=== PATIENT | male | born 1995 | race Caucasian/White ===

== ENCOUNTER 2016-03-12 16:15 | Emergency (ER) | payer BC ==
[2016-03-12 16:45] VITALS: BP 111/73
--- NOTE | 2016-03-12 16:57 | UC ---
Respiratory Complaint HPI - HPI Summary HPI Summary: The patient comes in today for: 1. Rhinitis: Onset: One week. Palliative/provocative: None. Quality: Pressure Region: Nose. Severity: 3/10 Time: Constant. Associated symptoms: Social: He will be going to [place] for a week. He leaves in 5 days-- flying. Cough: Not so much today. Rhinitis: Clear. Sore throat: None. Sinus pressure: None. Fevers: None known--no temperature taken. * R - History of Current Complaint Chief Complaint: UCRespiratory Stated Complaint: SINUSES Time Seen by Provider: 03/12/16 16:38 Hx Obtained From: Patient - Allergies/Home Medications Allergies/Adverse Reactions: Allergies Allergy/AdvReac Type Severity Reaction Status Date / Time No Known Allergies Allergy Verified 03/12/16 16:25 Home Medications: Home Medications [id number] [Nyquil Severe Cold/Flu 5-6.25-10-325 mg/15Ml] 1 liq PO ONCE PRN 03/12/16 [History Confirmed 03/12/16] Throat Lozenges [Menthol Cough Drops] 5 mg MT ONCE PRN 03/12/16 [History Confirmed 03/12/16] PMH/Surg Hx/FS Hx/Imm Hx Previously Healthy: No Endocrine History Of: Denies: Diabetes, Thyroid Disease, Hyperthyroidism, Hypothyroidism, Dyslipidemia Cardiovascular History Of: Denies: Cardiac Disorders, Hypertension, Pacemaker/ICD, Myocardial Infarction , Congestive Heart Failure, Atrial Fibrillation, Deep Vein Thrombosis, Bleeding Disorders Respiratory History Of: Denies: COPD, Asthma, Bronchitis, Pneumonia, Pulmonary Embolism GI/ History Of: Reports: Gastroesophageal Reflux Denies: Ulcer, Gastrointestinal Bleed, Gall Bladder Disease, Kidney Stones, Diverticulitis, Renal Disease, Urosepsis Neurological History Of: Denies: TIA, CVA, Dementia, Seizures, Migraine Psychological History Of: Denies: Anxiety, Depression, Bipolar Disorder, Schizophrenia, Post Traumatic Stress Disorder Cancer History Of: Denies: Lung Cancer, Colorectal Cancer, Breast Cancer, Prostate Cancer, Cervical Cancer Other History Of: Negative For: HIV, Hepatitis B, Hepatitis C, Anticoagulant Therapy - Surgical History Surgical History: None - Family History Known Family History: Positive: Cardiac Disease, Hypertension, Other - healthy parents, no concerns. - Social History Occupation: Employed Full-time Alcohol Use: Occasionally Substance Use Type: None Smoking Status (MU): Never Smoked Tobacco - Immunization History Most Recent Influenza Vaccination: Not the Season Review of Systems Constitutional: Negative Skin: Negative Eyes: Negative ENT: Nasal Discharge Respiratory: Negative Cardiovascular: Negative Gastrointestinal: Negative Genitourinary: Negative All Other Systems Reviewed And Are Negative: Yes Physical Exam Triage Information Reviewed: Yes Appearance: Well-Appearing, No Pain Distress, Well-Nourished Vital Signs: Initial Vital Signs Temp 98.4 F 03/12/16 16:20 Pulse 62 03/12/16 16:20 Resp 16 03/12/16 16:20 BP 111/73 03/12/16 16:20 Pulse Ox 100 03/12/16 16:20 Vital Signs Reviewed: Yes Eyes: Positive: Conjunctiva Clear. Negative: Discharge ENT: Negative: Hearing grossly normal, Pharyngeal erythema, Nasal congestion, TM bulging, TM dull, TM red, Tonsillar swelling, Tonsillar exudate Dental: Negative: Gross Decay/Caries @, Dental Fracture @ Neck: Positive: Supple, Nontender, No Lymphadenopathy. Negative: Nuchal Rigidity Respiratory: Positive: Chest non-tender, Lungs clear, No respiratory distress, No accessory muscle use. Negative: Crackles, Wheezing Cardiovascular: Positive: RRR, No Murmur Abdomen Description: Positive: Nontender, No Organomegaly, Soft. Negative: Distended, Guarding, Peritoneal Signs Musculoskeletal: Positive: Strength Intact, ROM Intact Neurological: Positive: Alert, Muscle Tone Normal Psychological: Positive: Age Appropriate Behavior, Consolable Skin: Negative: rashes, breakdown UC Diagnostic Evaluation - Laboratory O2 Sat by Pulse Oximetry: 100 Respiratory Course/Dx - Differential Dx/Diagnosis Differential Diagnosis/HQI/PQRI: Asthma, Bronchitis, Laryngitis, Sinusitis Provider Diagnoses: Upper respiratory infection Discharge - Discharge Plan Condition: Stable Disposition: HOME Patient Education Materials: Upper Respiratory Infection (ED) Referrals: No Primary Care Phys,NOPCP [Primary Care Provider] - 1 Week (Please see your primary care provider in about a week to see how well you are doing. If you get worse, please be seen sooner.)
== END 2016-03-12 17:14 | disposition home or self-care (01) ==
LOC: UCCORT 16:15
DX: J06.9 Acute upper respiratory infection, unspecified (principal)
CPT/HCPCS: 99212; G0463

== ENCOUNTER 2016-10-04 16:51 | Emergency (ER) | payer BC ==
[2016-10-04 17:03] VITALS: BP 105/61
--- NOTE | 2016-10-04 17:18 | UC ---
General HPI - HPI Summary HPI Summary: 1. sore throat for 2 days, denies fever 2. for 2 weeks has been having pain in the left knee located on the medial aspect of the patella. increased with the last 20-30 degrees of extension. mild swelling in the astus medialis - History of Current Complaint Chief Complaint: UCGeneralIllness Stated Complaint: SORE THROAT, LEFT KNEE PAIN Time Seen by Provider: 10/04/16 16:54 Hx Obtained From: Patient Onset/Duration: Gradual Onset, Lasting Weeks Timing: Constant Onset Severity: Mild Current Severity: Severe - Allergy/Home Medications Allergies/Adverse Reactions: Allergies Allergy/AdvReac Type Severity Reaction Status Date / Time No Known Allergies Allergy Verified 10/04/16 16:58 PMH/Surg Hx/FS Hx/Imm Hx Previously Healthy: Yes Other History Of: Negative For: HIV, Hepatitis B, Hepatitis C, Anticoagulant Therapy - Surgical History Surgical History: None - Family History Known Family History: Positive: Cardiac Disease, Hypertension, Other - healthy parents, no concerns. - Social History Alcohol Use: Occasionally Substance Use Type: None Smoking Status (MU): Never Smoked Tobacco - Immunization History Most Recent Influenza Vaccination: Not the Season Most Recent Tetanus Shot: 09/21/15 Review of Systems Skin: Negative Eyes: Negative ENT: Sore Throat Respiratory: Negative Cardiovascular: Negative Gastrointestinal: Negative Genitourinary: Negative Motor: Negative Neurovascular: Negative Musculoskeletal: Arthralgia, Edema, Myalgia Neurological: Negative Psychological: Negative All Other Systems Reviewed And Are Negative: Yes Physical Exam Triage Information Reviewed: Yes Appearance: Well-Nourished, Ill-Appearing, Pain Distress Vital Signs: Initial Vital Signs Temp 97.8 F 10/04/16 16:54 Pulse 66 10/04/16 16:54 Resp 16 10/04/16 16:54 BP 105/61 10/04/16 16:54 Pulse Ox 98 10/04/16 16:54 Vital Signs Reviewed: Yes Eye Exam: Normal ENT: Positive: Pharyngeal erythema, TMs normal, Tonsillar swelling Dental Exam: Normal Neck exam: Normal Respiratory Exam: Normal Respiratory: Positive: Chest non-tender, Lungs clear, Normal breath sounds Cardiovascular Exam: Normal Cardiovascular: Positive: RRR, Pulses Normal Abdominal Exam: Normal Abdomen Description: Positive: Nontender, No Organomegaly, Soft Bowel Sounds: Positive: Present Musculoskeletal: Positive: Strength Intact, ROM Intact, Edema @ - over left vastus medialis Neurological Exam: Normal Psychological Exam: Normal Skin Exam: Normal Course/Dx - Course Course Of Treatment: hx obtained, exam performed, meds reviewed, rapid strep obtained and is negative, ROM asessed in lower extremities, educated on stretching - Differential Dx - Multi-Symptom Provider Diagnoses: patella tracking syndrom, left leg. pharyngitis Discharge - Discharge Plan Condition: Stable Disposition: HOME Prescriptions: Meloxicam(NF) [Mobic(NF)] 15 mg PO DAILY #14 tab Patient Education Materials: Patellofemoral Pain Syndrome (ED) Additional Instructions: 1. rest, ice compress and elevate the left knee to relieve the pain ans welling. 2. Stretch and strengthen the left quadricept ( thigh) to relieve the stress on the knee 3. I recommend gargling with salt water multiple times a day for your sore throat.
== END 2016-10-04 17:38 | disposition home or self-care (01) ==
LOC: UCCORT 16:51
DX: J02.9 Acute pharyngitis, unspecified (principal); M25.562 Pain in left knee
CPT/HCPCS: 87651; 99212; G0463

== ENCOUNTER 2017-01-28 13:27 | Emergency (ER) | payer BC ==
[2017-01-28 14:12] VITALS: BP 115/67
--- OUTSIDE RECORDS SUMMARY | 2017-01-28 15:47 | XMS REPORT | Continuity of Care Document ---
:1995 Author Organization [facility] Care Team Providers Name Role Phone DOCTOR, NO Primary Care Physician Unavailable Insurance Providers Payer Name Policy Number Subscriber Name Relationship ROSELYN NAIDU CHOICE [id number] MARLEEN GONZALES Advance Directives Directive Response Recorded Date/Time Advance Directive? N 01/03/17 5:03pm Living Will? N 01/03/17 5:03pm Health Care Proxy? N 01/03/17 5:03pm Is the patient an Organ Donor? N 01/03/17 5:03pm Chief Complaint and Reason for Visit Reason for Visit SORE THROAT,RUNNY NOSE, Problems Active Medical Problems Problem Onset Date Recorded Date Status Tick bite Unknown 01/17/14 Active Acute pharyngitis Unknown 06/14/14 Active Viral upper respiratory illness Unknown 06/14/14 Active Wrist sprain Unknown 05/01/15 Active Petechial rash Unknown 07/22/15 Active Abdominal pain Unknown 07/19/16 Active Medications Current Home Medications Medication Dose Units Route Directions Days/Qty Instructions Start Date Azithromycin 1 PAC ORAL DIRECTED 1 DAY 1: TAKE 2 01/03/17 (Zithromax) 250 TABS BY MOUTH DAY MG TABLET 2-5: TAKE 1 TAB BY MOUTH Ibuprofen 600 MG 600 MG ORAL 3 TIMES A DAY 30 07/19/16 TABLET NEEDED as needed for PAIN Past Home Medications Medication Directions Ordered Status Acetaminophen (Tylenol) 325 Mg Tab Tab, EVERY 6 HOURS NEEDED Unknown Discontinued 2 Tab Oral Benzonatate (Tessalon) 200 Mg Capsule 3 TIMES DAILY 12/10/12 Discontinued Capsule, 200 Mg Oral Diphenhydramine (Benadryl) 25 Mg Tab EVERY 6 HOURS NEEDED 09/30/09 Discontinued Tab, 1-2 Tab Oral Doxycycline Monohydrate 100 Mg Tablet 2 TIMES A DAY 01/17/14 Discontinued Tablet, 100 Mg Oral Esomeprazole Magnesium (Nexium) 20 Mg NEEDED for HEARTBURN Unknown Discontinued Capsule.dr Fernandez, 1 Unit Oral Ibuprofen (Advil) 200 Mg Tab Tab, 600 NEEDED Unknown Discontinued Mg Oral Ibuprofen (Motrin) 200 Mg Tab Tab, 2 Mg NEEDED Unknown Discontinued Oral Ibuprofen (Motrin) 600 Mg Tablet EVERY 8 HOURS NEEDED 09/30/09 Discontinued Tablet, 1 Tab Oral Naproxen (Naprosyn) 500 Mg Tablet 2 TIMES A DAY 05/01/15 Discontinued Tablet, 500 Mg Oral No Medication Used (Pt Denies Any Use Unknown Discontinued Of Medications) 1 Form Form Form, Omeprazole 20 Mg Tablet.dr Hahn, 1 ONCE DAILY Unknown Discontinued Tab Oral Triamcinolone 0.1 % Crm (Triamcinolone 3 TIMES DAILY 07/22/15 Discontinued Acetonide 0.1%) 15 Gm Cr Cr, 1 Shira Topical Family History Relationship Name Date of Condition Age ( At Cause Age ( Age Gender Recorded Onset ) of At Date/Time ) FATHER Family history M 07/19/16 of hypertension 1803 Social History Problem Response Recorded Date Other substance/drug use DENIES 01/03/17 Tobacco use within the past 12 months? N 04/14/09 Alcohol amt DENIES 09/30/09 Query Response Start Date Stop Date Smoking Status Never smoker Hospital Discharge Instructions No hospital discharge instructions. Plan of Care Discharge Date 01/03/17 Disposition Routine Discharge Home Condition at Discharge STABLE Instructions/Education Provided Pharyngitis (ED) Prescriptions See Medications Section Referrals DOCTOR,NO - [facility] Primary Care - Reason(s) for Referral: Notes: Dr. Roxi Taylor [facility] ([facility]) SOPHY Flores NP, Dr., Dr., Dr., Dr., Dr. Additional Instructions/Education You need to make an appointment to follow- up with the following health care provider or your regular doctor within 3 days. Please make your appointment to see your health care provider as soon as possible. Please return immediately if your symptoms worsen, or you cannot get a follow-up appointment. Increase fluids, follow up with your primary care provider if no improvement in 1 week. Functional Status Query Response Date Recorded Do you get in and out of a chair: Independently July 19, 2016 6:59pm Do you bathe/dress: Independently July 19, 2016 6:59pm Adaptive devices: None July 19, 2016 6:59pm Living situation: Home with family July 19, 2016 6:59pm Allergies, Adverse Reactions, Alerts No known allergies. Immunizations Name Date Given Type Last Tetanus [place] Historical Vital Signs Vital Reading Collection Date/Time Result Blood Pressure 01/03/17 5:04pm 138/67 Temperature 01/03/17 5:04pm 99.1 F Temperature Source 01/03/17 5:04pm Temporal Respiratory Rate 01/03/17 5:04pm 16 Pulse Rate 01/03/17 5:04pm 70 Bedside Pulse Oximetry 01/03/17 5:04pm 98 Height 01/03/17 5:04pm 5 ft 6 in Height 01/03/17 5:04pm 167.64 cm Weight 01/03/17 5:04pm 130 lb Weight 01/03/17 5:04pm 58.967 kg Body Mass Index 01/03/17 5:04pm 21.0 kg/m2 Results No known relevant diagnostic tests, laboratory data and/or discharge summary. Procedures Procedure Status Date Provider(s) CHEST PA AND LATERAL Active 01/03/17 AL GALLARDO [employer] Encounters Encounter Location Arrival/Admit Date Discharge/Depart Date Attending Provider Departed [place] 01/03/17 3:45pm 01/03/17 6:10pm DO[facility], [facility]
--- NOTE | 2017-01-28 15:59 | RAD ---
INDICATION: Trauma COMPARISON: None TECHNIQUE: AP, lateral, and oblique views were obtained. FINDINGS: The bony structures, joint spaces, and soft tissues are normal for age. IMPRESSION: NEGATIVE EXAMINATION.
--- NOTE | 2017-01-28 16:16 | UC ---
Hand/Wrist HPI - HPI Summary HPI Summary: RIGHT WRIST PAIN RADIATES TO FOREARM AND HAND, AFTER SHUTTING AND AND WRIST IN DOOR LAST NIGHT. NO PREVIOUS INJURY - History Of Current Complaint Chief Complaint: UCUpperExtremity Stated Complaint: RIGHT WRIST/FINGERS INJURIES Time Seen by Provider: 01/28/17 15:21 Hx Obtained From: Patient Onset/Duration: Sudden Onset, Lasting Hours, Still Present Severity Initially: Moderate Severity Currently: Moderate Pain Intensity: 7 Pain Scale Used: 0-10 Numeric Character Of Pain: Dull, Aching, Stiffness Aggravating Factor(s): Movement, Lifting, Flexion, Extension Alleviating Factor(s): Nothing Associated Signs And Symptoms: Positive: Negative Related History: Dominant Hand Right - Allergies/Home Medications Allergies/Adverse Reactions: Allergies Allergy/AdvReac Type Severity Reaction Status Date / Time No Known Allergies Allergy Verified 01/28/17 14:07 Home Medications: Home Medications Ibuprofen TAB* [Advil TAB*] 600 mg PO Q6H PRN 01/28/17 [History Confirmed ] PMH/Surg Hx/FS Hx/Imm Hx Previously Healthy: Yes Other History Of: Negative For: HIV, Hepatitis B, Hepatitis C, Anticoagulant Therapy - Surgical History Surgical History: None - Family History Known Family History: Positive: Cardiac Disease, Hypertension, Other - healthy parents, no concerns. - Social History Occupation: Employed Full-time Lives: With Family Alcohol Use: Occasionally Substance Use Type: None Smoking Status (MU): Never Smoked Tobacco - Immunization History Most Recent Influenza Vaccination: Not the 2016/2017 Season Most Recent Tetanus Shot: 09/21/15 Review of Systems Constitutional: Negative Skin: Negative Eyes: Negative ENT: Negative Respiratory: Negative Cardiovascular: Negative Gastrointestinal: Negative Genitourinary: Negative Motor: Negative Neurovascular: Negative Musculoskeletal: Arthralgia - RIGHT WRIST, Myalgia - RIGHT WRIST Neurological: Negative Psychological: Negative Is Patient Immunocompromised?: No All Other Systems Reviewed And Are Negative: Yes Physical Exam Triage Information Reviewed: Yes Appearance: Well-Appearing, No Pain Distress, Well-Nourished Vital Signs: Initial Vital Signs Temp 97.9 F 01/28/17 14:06 Pulse 66 01/28/17 14:06 Resp 16 01/28/17 14:06 BP 115/67 01/28/17 14:06 Pulse Ox 100 01/28/17 14:06 Vital Signs Reviewed: Yes Eye Exam: Normal ENT Exam: Normal ENT: Positive: Normal ENT inspection, Hearing grossly normal, Pharynx normal, TMs normal Dental Exam: Normal Neck exam: Normal Neck: Positive: Supple, Nontender, No Lymphadenopathy Respiratory Exam: Normal Respiratory: Positive: Chest non-tender, Lungs clear, Normal breath sounds Cardiovascular Exam: Normal Cardiovascular: Positive: RRR, No Murmur, Pulses Normal Abdominal Exam: Normal Abdomen Description: Positive: Nontender, No Organomegaly Musculoskeletal: Positive: No Edema, Strength Limited @ - RIGHT WRIST, ROM Limited @ - RIGHT WRIST Neurological Exam: Normal Psychological Exam: Normal Skin Exam: Normal Hand/Wrist Course/Dx - Differential Dx/Diagnosis Differential Diagnosis/HQI/PQRI: Sprain, Strain Provider Diagnoses: RIGHT WRIST SPRAIN/CONTUSION Discharge - Discharge Plan Condition: Stable Disposition: HOME Patient Education Materials: Wrist Injury (ED), Wrist Sprain (ED) Forms: *Work Release Referrals: [facility] [place] PHYSICIAN REFERRAL [Outside] Jonah Will MD [Medical Doctor] - If Needed No Primary Care Phys,NOPCP [Primary Care Provider] - Additional Instructions: PHYSICAL THERAPY REFERRAL: You have been prescribed physical therapy. Treatments may include stretching, exercise, application of heat or cold, and other modalities. After an injury, PT can reduce swelling and pain. In recovery, PT is used to restore mobility and strength. Your specific treatment goals are: ___X__ Reduction of Swelling (EGS, US, ice as needed) ____X_ Pain Reduction (EGS, US, ice as needed) TENS Pack Fitting and Instruction Wound Hydrotherapy ___X__ Preservation of Mobility __X___ Sabianism of Mobility ___X__ Strength Sabianism ___X__ Work or Sports Hardening This instruction sheet also serves as your PHYSICAL THERAPY REFERRAL! Please take it with you to the therapist, so he/she will be aware of your diagnosis and treatment plan. You may see the physical therapist of your choice for these treatments, but may wish to check with your insurance to be sure the provider you select is covered. It's important to see the doctor to whom you have been referred for follow up.
== END 2017-01-28 16:08 | disposition home or self-care (01) ==
LOC: UCCORT 13:27
DX: S63.501A Unspecified sprain of right wrist, initial encounter (principal); S60.211A Contusion of right wrist, initial encounter; W23.0XXA Caught, crushed, jammed, or pinched between moving objects, initial encounter; Y93.9 Activity, unspecified; Y92.9 Unspecified place or not applicable
CPT/HCPCS: 99212; G0463

== ENCOUNTER 2017-06-04 09:40 | Emergency (ER) | payer BC ==
[2017-06-04 11:13] VITALS: BP 115/67
--- NOTE | 2017-06-04 11:32 | UC ---
Upper Extremity HPI - HPI Summary HPI Summary: pt states awoke with pain to the back of his R wrist and thumb areas last tuesday. the area was injured back in Dec but he had recovered with tx. he denies any recurrent injury. no fever. no numb/weakness to the hand. 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 Pt has splint from prior visit but has not tried it. - History of Current Complaint Chief Complaint: UCUpperExtremity Stated Complaint: RIGHT WRIST INJURY Time Seen by Provider: 06/04/17 11:22 Hx Obtained From: Patient Onset/Duration: Sudden Onset Pain Intensity: 7 Character: Aching, Stiffness Alleviating Factor(s): Nothing - Risk Factors Septic Arthritis Risk Factor: Negative - Allergies/Home Medications Allergies/Adverse Reactions: Allergies Allergy/AdvReac Type Severity Reaction Status Date / Time No Known Allergies Allergy Verified 06/04/17 11:02 Home Medications: Home Medications Esomeprazole(NF) [Nexium(NF)] 40 mg PO DAILY 06/04/17 [History Confirmed ] PMH/Surg Hx/FS Hx/Imm Hx Previously Healthy: Yes Other History Of: Negative For: HIV, Hepatitis B, Hepatitis C, Anticoagulant Therapy - Surgical History Surgical History: None - Family History Known Family History: Positive: Cardiac Disease, Hypertension, Other - healthy parents, no concerns. - Social History Occupation: Employed Full-time Lives: With Family Alcohol Use: Occasionally Substance Use Type: None Smoking Status (MU): Never Smoked Tobacco - Immunization History Most Recent Influenza Vaccination: Not the 2017/2017 Season Most Recent Tetanus Shot: 09/21/15 Vaccination Up to Date: Yes Review of Systems Constitutional: Negative Skin: Negative Eyes: Negative ENT: Negative Respiratory: Negative Cardiovascular: Negative Gastrointestinal: Negative Genitourinary: Negative Motor: Other - R wrist pain Neurovascular: Negative Musculoskeletal: Negative Neurological: Negative Psychological: Negative Is Patient Immunocompromised?: No All Other Systems Reviewed And Are Negative: Yes Physical Exam Triage Information Reviewed: Yes Appearance: Well-Appearing Vital Signs: Initial Vital Signs Temp 98.8 F 06/04/17 11:05 Pulse 81 06/04/17 11:05 Resp 18 06/04/17 11:05 BP 115/67 06/04/17 11:05 Pulse Ox 100 06/04/17 11:05 Vital Signs Reviewed: Yes Eyes: Positive: Conjunctiva Clear ENT: Positive: Normal ENT inspection Neck: Positive: Supple, Nontender, No Lymphadenopathy Respiratory: Positive: Lungs clear, Normal breath sounds Cardiovascular: Positive: RRR, No Murmur Abdomen Description: Positive: Nontender, No Organomegaly, Soft Bowel Sounds: Positive: Present Musculoskeletal: Positive: Other: - RUE: no gross deformity, swelling or discoloration. wrist/hand are non tender to palapation. mild dorsal wrist discomfort with active rom. No snuff box tenderness and negative Finklestein test. Hand/wrist have full s/v/m function. Neurological: Positive: Alert Psychological: Positive: Age Appropriate Behavior Skin Exam: Normal Diagnostics - Radiology No standard instances Xray Interpretation: No Acute Changes Radiology Interpretation Completed By: Radiologist Upper Extremity Course/Dx - Course Course Of Treatment: no concern for fx or infection. will resume splint plus add nsaid for tendinitis - Differential Dx/Diagnosis Provider Diagnoses: Tendinitis R wrist Discharge - Sign-Out/Discharge Documenting (check all that apply): Discharge - Discharge Plan Condition: Stable Disposition: HOME Prescriptions: Naproxen [Naprosyn] 500 mg PO BID #10 tablet Patient Education Materials: Tendinitis (ED) Referrals: Jonah Will MD [Medical Doctor] - 7 Days Additional Instructions: RESUME WRIST SPLINT AND REMOVE AT BEDTIME. - Billing Disposition and Condition Condition: STABLE Disposition: HOME
--- NOTE | 2017-06-04 11:53 | RAD ---
INDICATION: Remote injury, right wrist pain. TECHNIQUE: 3 views of the right wrist were obtained. FINDINGS: The bones are in normal alignment. No fracture is seen. Joint spaces appear maintained. IMPRESSION: NO EVIDENCE FOR FRACTURE.
== END 2017-06-04 12:22 | disposition home or self-care (01) ==
LOC: UCCORT 09:40
DX: M77.9 Enthesopathy, unspecified (principal)
CPT/HCPCS: 99212; G0463

== ENCOUNTER 2017-11-24 19:10 | Emergency (ER) | payer BC ==
[2017-11-24 20:15] VITALS: BP 138/73
--- NOTE | 2017-11-24 21:02 | UC ---
Hand/Wrist HPI - HPI Summary HPI Summary: Approx one week history of right wrist pain which began acutely, he believes while using a wrench. Has used a brace but pain continues. Just finished remodeling a bathroom, has used a single dose of ibuprofen 200mg without relief. Tendonitis in left hand in the past was relieved with a steroid injection. - History Of Current Complaint Chief Complaint: UCUpperExtremity Stated Complaint: RIGHT WRIST Time Seen by Provider: 11/24/17 20:51 Hx Obtained From: Patient Onset/Duration: Sudden Onset, Lasting Days Severity Initially: Moderate Severity Currently: Moderate Pain Intensity: 10 Character Of Pain: Aching Aggravating Factor(s): Movement, Lifting Alleviating Factor(s): Rest, Other - right wrist brace. Associated Signs And Symptoms: Positive: Negative Related History: Dominant Hand Right - Allergies/Home Medications Allergies/Adverse Reactions: Allergies Allergy/AdvReac Type Severity Reaction Status Date / Time No Known Allergies Allergy Verified 11/24/17 20:08 Home Medications: Home Medications Ibuprofen TAB* [Advil TAB*] 200 mg PO Q6H PRN 11/24/17 [History Confirmed ] PMH/Surg Hx/FS Hx/Imm Hx Previously Healthy: Yes Other History Of: Negative For: HIV, Hepatitis B, Hepatitis C, Anticoagulant Therapy - Surgical History Surgical History: None - Family History Known Family History: Positive: Cardiac Disease, Hypertension, Other - healthy parents, no concerns. - Social History Occupation: Employed Full-time Lives: With Family Alcohol Use: Occasionally Substance Use Type: None Smoking Status (MU): Never Smoked Tobacco - Immunization History Most Recent Influenza Vaccination: Not the Season Most Recent Tetanus Shot: 09/21/15 Vaccination Up to Date: Yes Review of Systems Constitutional: Negative Skin: Negative Eyes: Negative ENT: Negative Respiratory: Negative Cardiovascular: Negative Gastrointestinal: Negative Genitourinary: Negative Motor: Negative Neurovascular: Negative Musculoskeletal: Arthralgia, Myalgia Neurological: Negative Psychological: Negative Is Patient Immunocompromised?: No All Other Systems Reviewed And Are Negative: Yes Physical Exam Triage Information Reviewed: Yes Appearance: Well-Appearing, Pain Distress - mild Vital Signs: Initial Vital Signs Temp 98.5 F 11/24/17 20:09 Pulse 87 11/24/17 20:09 Resp 14 11/24/17 20:09 BP 138/73 11/24/17 20:09 Pulse Ox 100 11/24/17 20:09 Vital Signs Reviewed: Yes Respiratory Exam: Other Respiratory: Positive: Lungs clear, Normal breath sounds Cardiovascular: Positive: RRR, No Murmur Musculoskeletal Exam: Other - right elbow normal, right wrist without eythema, warmth or swelling, tender to palpation ulnar border and over mid dorsal area. Musculoskeletal: Positive: ROM Intact - right wrist with flexion to 45 degrees, extension to 60 degrees. No pain with passive movement of digits. Neurological: Positive: Alert, Muscle Tone Normal Psychological Exam: Other - flat affect Skin Exam: Normal Hand/Wrist Course/Dx - Course Course Of Treatment: continue brace, nsaid's, ice. - Differential Dx/Diagnosis Differential Diagnosis/HQI/PQRI: Tendonitis, Tenosynovitis Provider Diagnoses: right wrist extensor tendonitis. Discharge - Sign-Out/Discharge Documenting (check all that apply): Patient Departure All imaging exams completed and their final reports reviewed: No Studies - Discharge Plan Condition: Stable Disposition: HOME Patient Education Materials: Tendinitis (ED) Referrals: Brandon BURRIS,Chris [Primary Care Provider] - Jonah Will MD [Medical Doctor] - Additional Instructions: Continue bracing the wrist, and ensure that you ice it 3 times daily for 20 minutes. Use ibuprofen 600mg up to 4 times daily. I suggest regular use with food at least 3 times daily, stopping if it causes stomach upset. - Billing Disposition and Condition Condition: STABLE Disposition: Home
== END 2017-11-24 21:17 | disposition home or self-care (01) ==
LOC: UCCORT 19:10
DX: M77.9 Enthesopathy, unspecified (principal)
CPT/HCPCS: 99211; G0463

== ENCOUNTER 2018-11-06 16:34 | Emergency (ER) | payer BC ==
[2018-11-06 16:49] VITALS: BP 126/76
--- NOTE | 2018-11-06 17:16 | ED ---
Throat Pain/Nasal Congestion - HPI Summary HPI Summary: 23 yr old with over a week of feeling like his right ear is plugged and decreased hearing. No drainage, no URI symptoms. He has symptoms that are moderate. No fever or chills. No post nasal drip. No other complaints. - History of Current Complaint Chief Complaint: UCEar Time Seen by Provider: 11/06/18 16:50 - Allergies/Home Medications Allergies/Adverse Reactions: Allergies Allergy/AdvReac Type Severity Reaction Status Date / Time No Known Allergies Allergy Verified 11/06/18 16:47 PMH/Surg Hx/FS Hx/Imm Hx Endocrine/Hematology History: Denies: Hx Anticoagulant Therapy, Hx Diabetes, Hx Thyroid Disease Cardiovascular History: Denies: Hx Congestive Heart Failure, Hx Deep Vein Thrombosis, Hx Hypertension , Hx Myocardial Infarction, Hx Pacemaker/ICD Respiratory History: Denies: Hx Asthma, Hx Chronic Obstructive Pulmonary Disease (COPD), Hx Lung Cancer, Hx Pneumonia, Hx Pulmonary Embolism GI History: Denies: Hx Gall Bladder Disease, Hx Gastrointestinal Bleed, Hx Ulcer, Hx Urosepsis History: Denies: Hx Kidney Stones, Hx Renal Disease Neurological History: Denies: Hx Dementia, Hx Migraine, Hx Seizures, Hx Transient Ischemic Attacks (TIA) Psychiatric History: Denies: Hx Anxiety, Hx Depression, Hx Schizophrenia, Hx Bipolar Disorder Infectious Disease History: No Infectious Disease History: Denies: Traveled Outside the [place] in Last 30 Days - Family History Known Family History: Positive: Cardiac Disease, Hypertension, Other - healthy parents, no concerns. - Social History Occupation: Employed Full-time Alcohol Use: Occasionally Substance Use Type: Reports: None Smoking Status (MU): Never Smoked Tobacco Review of Systems Constitutional: Negative Positive: Ear Ache All Other Systems Reviewed And Are Negative: Yes Physical Exam Triage Information Reviewed: Yes Vital Signs On Initial Exam: Initial Vitals Temp Pulse Resp BP Pulse Ox 98.2 F 64 16 126/76 99 11/06/18 16:47 11/06/18 16:47 11/06/18 16:47 11/06/18 16:47 11/06/18 16:47 Vital Signs Reviewed: Yes Appearance: Positive: Well-Appearing, No Pain Distress Skin: Positive: Warm, Skin Color Reflects Adequate Perfusion Head/Face: Positive: Normal Head/Face Inspection Eyes: Positive: EOMI ENT: Positive: Other - cerumen impaction right ear Neck: Positive: Nontender Respiratory/Lung Sounds: Positive: Clear to Auscultation, Breath Sounds Present Cardiovascular: Positive: RRR. Negative: Murmur Musculoskeletal: Positive: Strength/ROM Intact Neurological: Positive: Sensory/Motor Intact, Alert, Oriented to Person Place, Time, CN Intact II-III Psychiatric: Positive: Normal Diagnostics - Vital Signs Vital Signs Temp Pulse Resp BP Pulse Ox 11/06/18 16:47 98.2 F 64 16 126/76 99 - Laboratory Lab Statement: Any lab studies that have been ordered have been reviewed, and results considered in the medical decision making process. EENT Course/Dx - Course Course Of Treatment: right ear irrigated by nurses, and on reevaluation it is clear of wax. TM without perforation. DC home. - Diagnoses Provider Diagnoses: Right ear impacted cerumen Discharge ED - Sign-Out/Discharge Documenting (check all that apply): Patient Departure All imaging exams completed and their final reports reviewed: No Studies - Discharge Plan Condition: Good Disposition: HOME Patient Education Materials: Cerumen Impaction (ED) Referrals: Chris Taylor MD [Primary Care Provider] - - Billing Disposition and Condition Condition: GOOD Disposition: Home
== END 2018-11-06 17:20 | disposition home or self-care (01) ==
LOC: UCCORT 16:34
DX: H61.21 Impacted cerumen, right ear (principal)
CPT/HCPCS: 99212; G0463

== ENCOUNTER 2019-03-04 12:58 | Emergency (ER) | payer BC ==
[2019-03-04 13:32] VITALS: BP 102/71
--- NOTE | 2019-03-04 14:01 | UC ---
General HPI - HPI Summary HPI Summary: 23-year-old male who awakened with left-sided jaw pain over the TMJ yesterday morning. No known trauma. Denies any dental pain. No other symptoms of illness. - History of Current Complaint Chief Complaint: UCGeneralIllness Stated Complaint: LEFT JAW PAIN Time Seen by Provider: 03/04/19 13:49 Hx Obtained From: Patient Onset/Duration: Gradual Onset Timing: Constant Onset Severity: Mild Current Severity: Moderate Pain Intensity: 7 - Allergy/Home Medications Allergies/Adverse Reactions: Allergies Allergy/AdvReac Type Severity Reaction Status Date / Time No Known Allergies Allergy Verified 03/04/19 13:27 PMH/Surg Hx/FS Hx/Imm Hx Previously Healthy: Yes Other History Of: Negative For: HIV, Hepatitis B, Hepatitis C, Anticoagulant Therapy - Surgical History Surgical History: None - Family History Known Family History: Positive: Cardiac Disease, Hypertension, Other - healthy parents, no concerns. - Social History Alcohol Use: Occasionally Substance Use Type: None Smoking Status (MU): Never Smoked Tobacco - Immunization History Most Recent Influenza Vaccination: Not the Season Most Recent Tetanus Shot: 09/21/15 Vaccination Up to Date: Yes Review of Systems All Other Systems Reviewed And Are Negative: Yes ENT: Positive: Other - Discomfort over the left TMJ. Is Patient Immunocompromised?: No Physical Exam Triage Information Reviewed: Yes Appearance: Well-Appearing, No Pain Distress, Well-Nourished Vital Signs: Initial Vital Signs Temp 97.4 F 03/04/19 13:27 Pulse 71 03/04/19 13:27 Resp 16 03/04/19 13:27 BP 102/71 03/04/19 13:27 Pulse Ox 99 03/04/19 13:27 Vital Signs Reviewed: Yes Eyes: Positive: Conjunctiva Clear ENT: Positive: Pharynx normal, TMs normal, Uvula midline, Other - Mild tenderness on palpation over the left TMJ. No swelling, erythema, bruising or deformity is noted. Dental Exam: Normal Dental: Positive: Other: - Teeth are in good condition, gumline is normal color. Neck: Positive: Supple, Nontender, No Lymphadenopathy Respiratory: Positive: Lungs clear, Normal breath sounds, No respiratory distress, No accessory muscle use Cardiovascular: Positive: RRR, No Murmur, Pulses Normal, Brisk Capillary Refill Musculoskeletal Exam: Normal Neurological Exam: Normal Psychological Exam: Normal Skin Exam: Normal Course/Dx - Course Course Of Treatment: The patient is being given information on TMJ disorder but I advised him I don' t really feel this is the cause of the discomfort is feeling. I don't believe incidental cause and his ear exam was normal. He has not taken any pain control therefore I advised him to take 600 mg of Motrin every 8 hours over the next 2 or 3 days and apply heat to the area and follow-up with his primary care provider for any worsening symptoms or continued pain. - Diagnoses Provider Diagnosis: Jaw pain Discharge ED - Sign-Out/Discharge Documenting (check all that apply): Patient Departure All imaging exams completed and their final reports reviewed: No Studies - Discharge Plan Condition: Good Disposition: HOME Patient Education Materials: Temporomandibular Disorder (ED) Referrals: Adrian De La Garza MD [Primary Care Provider] - Additional Instructions: May take ibuprofen 600 mg every 8 hours as needed for pain. Apply heat to the sore area. Follow-up with your primary care provider if no improvement in 2 or 3 days. - Billing Disposition and Condition Condition: GOOD Disposition: Home
== END 2019-03-04 14:07 | disposition home or self-care (01) ==
LOC: UCCORT 12:58
DX: R68.84 Jaw pain (principal)
CPT/HCPCS: 99211; G0463